=== PATIENT | female | born 1955 | race Caucasian/White ===

== ENCOUNTER → 2023-07-26 12:30 | Outpatient (BNV) | payer MEDICARE, SELFPAY | PROVIDERS: Visit Provider Psychiatry & Neurology Psychiatry | DX: F33.2 Major depressive disorder, recurrent severe without psychotic features (principal) | CPT/HCPCS: 90867; 90868 ==

== ENCOUNTER 2023-10-08 10:00 | Outpatient (RCR) | payer MEDICARE, SELFPAY ==
--- NOTE | 2023-07-10 16:49 | W.PM.TMSCONS ---
History of Present Illness General Data Date of Service: 07/10/23 Reason for consult: Depression/TMS consult Karissa farah made referral History of Present Illness Patient is a 67-year-old female with a long history of clinical depression worse since she required bypass surgery a few years ago. The patient had been seeing Dr. Pamela Walker at [facility] who has how been at [facility] and has been psychiatrically pharmacologically managed by her primary care and has been and ongoing psychotherapy for depression with Karissa Eugene for at least a year and a half. 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 The patient has use in the current episode which has less a number of years Prozac up to 60 mg sertraline up to 125 mg had Wellbutrin augmentation which was not effective and also the light box for augmentation. She has also been on amitriptyline previously. She has been under a lot of stress she may id need thyroid surgery for a goiter her thyroid functions reportedly her unremarkable she is frequently worried about her children particularly a daughter that she has been quite concerned regarding her level of drinking at times the patient has been quite despondent at times hopeless helpless never quite feeling good a poor able to enjoy things. Her respite has generally been at work where she can get her mind off her own concerns and troubles. Quite anhedonic denies history of psychiatric hospitalizations. She does feel distraught at the end of her rope cannot fathom further medication trials concerns regarding side effects and her ankle and cardiac condition Past Psychiatric History/Medication Trials: First treated for depression as a young adult when her daughters were teenagers. [facility] Medical History (Updated 07/12/23 @ 20:39 by Fabio Lipscomb MD) Major depressive disorder, recurrent severe without psychotic features Narrative: Status post bypass surgery History of titanium plate C3-C4 a fusion she states she has had MRIs without difficulties. No history of brain surgery aneurysm clips implanted electrodes pacemaker cochlear implant. 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 low-dose aspirin 81 mg daily zyrtec 10 mg daily solefenacin 10 mg daily for bladder control Allergies noted to Demerol Percocet codeine Mental Status Exam Mental Status Exam Narrative: Sad looking somewhat tearful Patient Appearance: Well Grooomed Patient Orientation: Person, Place, Time and Situation Level of Consciousness: Awake and Appropriate Mood Description: Depressed and Blunted Affect Description: Appropriate, Constricted and Depressed Patient Cognition Impaired: No Ability to Follow Directions: Good Speech Pattern: Clear Memory Description: Intact Hallucinations: None Delusions: Not Present Thought Process: Intact and Goal Oriented Thought Content: positive for Goal Oriented, positive for Preoccupation, negative for Suicidal Ideation or negative for Homicidal Ideation Depressive Symptoms: Increased Anxiety, Increased Irritability, Loss of Int. in Activity, Hopelessness, Isolating-Friends/Family, Unhappiness, Increased Fatigue, Loss of Energy and Difficulty Concentrating Judgement and Insight: Impaired regarding need for self-care tends to be stoic Assessment & Plan Assessment & Plan (1) Major depressive disorder, recurrent severe without psychotic features: Status: Acute Code(s): F33.2 - Major depressive disorder, recurrent severe without psychotic features Plan . The patient with a significant level of depression withHopelessness helplessness wanting to be isolated increased irritability and ongoing dysphoria that has failed medical trials psychotherapy light box and is quite concerned regarding potential side effects of antipsychotic augmentation or other side effects given medical issues . Patient would be a candidate for TMS given her level of depression poor functioning marked lack of quality of life will review insurance protocol no medical contraindications to treatment would trying clarify that she does have a titanium plate that can be used with MRI and magnetic tavera and that her thyroid condition is stable Their other augmentation strategies that were reviewed with patient a literature review risks benefits alternatives reviewed Total time managing care of this patient today ____ minutes.
--- NOTE | 2023-07-26 21:41 | P.PNPS_ITS ---
TMS Daily Progress Note Daily TMS Progress Note Date of Service: 07/26/23 Week #: 1 Treatment #(12-04): 1 PHQ-9 Pre-Treatment (12-01): 16 PHQ-9 Most Recent (12-01): 16 Reviewed: TMS Tech Note Reviewed Verification: I have reviewed the TMS Anesthesiologist Assistant Note and agree with the contents. The patient remains a candidate to continue TMS treatment per protocol. Assessment and Plan (1) Major depressive disorder, recurrent severe without psychotic features: Status: Acute Plan pt initial mapping completed without difficulty Time Spent With Patient Time: Total time managing care of this patient today ____ minutes.
--- NOTE | 2023-07-30 22:28 | HO.TMSDAILY2 ---
TMS Daily Progress Note Daily TMS Progress Note Date of Service: 07/27/23 Week #: 1 Treatment #(12-04): 2 PHQ-9 Pre-Treatment (12-01): 16 PHQ-9 Most Recent (12-01): 16 Reviewed: TMS Tech Note Reviewed Verification: I have reviewed the TMS Farm Equipment Assembler Note and agree with the contents. The patient remains a candidate to continue TMS treatment per protocol. Assessment and Plan Time Spent With Patient Time: Total time managing care of this patient today ____ minutes.
--- NOTE | 2023-07-30 22:30 | P.PNPS_ITS ---
TMS Daily Progress Note Daily TMS Progress Note Date of Service: 07/30/23 Week #: 1 Treatment #(12-04): 3 PHQ-9 Pre-Treatment (12-01): 16 PHQ-9 Most Recent (12-01): 16 Reviewed: TMS Tech Note Reviewed Verification: I have reviewed the TMS Electrical Engineering Designer Note and agree with the contents. The patient remains a candidate to continue TMS treatment per protocol. Assessment and Plan (1) Major depressive disorder, recurrent severe without psychotic features: Status: Acute Plan Tolerating treatment some apprehension with patient Time Spent With Patient Time: Total time managing care of this patient today ____ minutes.
--- NOTE | 2023-07-31 22:47 | HO.TMSDAILY2 ---
TMS Daily Progress Note Daily TMS Progress Note Date of Service: 07/31/23 Week #: 1 Treatment #(12-04): 4 PHQ-9 Pre-Treatment (12-01): 16 PHQ-9 Most Recent (12-01): 16 Reviewed: TMS Tech Note Reviewed Verification: I have reviewed the TMS Security Assurance Analyst Note and agree with the contents. The patient remains a candidate to continue TMS treatment per protocol. Assessment and Plan (1) Major depressive disorder, recurrent severe without psychotic features: Status: Acute Plan Patient tolerating treatment with some sedation after feeling comfortable about treatment no significant complaints side effects Time Spent With Patient Time: Total time managing care of this patient today ____ minutes.
--- NOTE | 2023-08-02 21:08 | P.PNPS_ITS ---
TMS Daily Progress Note Daily TMS Progress Note Date of Service: 08/02/23 Week #: 1 Treatment #(12-04): 5 PHQ-9 Pre-Treatment (12-01): 16 PHQ-9 Most Recent (12-01): 16 Reviewed: TMS Tech Note Reviewed Verification: I have reviewed the TMS Kiln Car Repairer Note and agree with the contents. The patient remains a candidate to continue TMS treatment per protocol. Assessment and Plan (1) Major depressive disorder, recurrent severe without psychotic features: Status: Acute Plan tolerating tx cont plan of care Time Spent With Patient Time: Total time managing care of this patient today ____ minutes.
--- NOTE | 2023-08-04 00:06 | P.PNPS_ITS ---
TMS Daily Progress Note Daily TMS Progress Note Date of Service: 08/03/23 Week #: 2 Treatment #(12-04): 6 PHQ-9 Pre-Treatment (12-01): 16 PHQ-9 Most Recent (12-01): 16 Reviewed: TMS Tech Note Reviewed Verification: I have reviewed the TMS Home Child Care Provider Note and agree with the contents. The patient remains a candidate to continue TMS treatment per protocol. Assessment and Plan (1) Major depressive disorder, recurrent severe without psychotic features: Status: Acute Plan Tolerating treatment continue plan of care Time Spent With Patient Time: Total time managing care of this patient today ____ minutes.
--- NOTE | 2023-08-15 22:17 | P.PNPS_ITS ---
TMS Daily Progress Note Daily TMS Progress Note Date of Service: 08/15/23 Week #: 3 Treatment #(12-04): 11 PHQ-9 Pre-Treatment (12-01): 16 PHQ-9 Most Recent (12-01): 5 Reviewed: TMS Tech Note Reviewed Verification: I have reviewed the TMS Medical Physics Professor Note and agree with the contents. The patient remains a candidate to continue TMS treatment per protocol. Assessment and Plan (1) Major depressive disorder, recurrent severe without psychotic features: Status: Acute Plan doing better cont plan of care Time Spent With Patient Time: Total time managing care of this patient today ____ minutes.
--- NOTE | 2023-08-16 22:03 | HO.TMSDAILY2 ---
TMS Daily Progress Note Daily TMS Progress Note Date of Service: 08/16/23 Week #: 3 Treatment #(12-04): 12 PHQ-9 Pre-Treatment (12-01): 16 PHQ-9 Most Recent (12-01): 5 Reviewed: TMS Tech Note Reviewed Verification: I have reviewed the TMS Commissary Helper Note and agree with the contents. The patient remains a candidate to continue TMS treatment per protocol. Assessment and Plan (1) Major depressive disorder, recurrent severe without psychotic features: Status: Acute Plan much improved Time Spent With Patient Time: Total time managing care of this patient today ____ minutes.
--- NOTE | 2023-08-17 23:55 | HO.TMSDAILY2 ---
TMS Daily Progress Note Daily TMS Progress Note Date of Service: 08/19/23 Week #: 3 Treatment #(12-04): 13 PHQ-9 Pre-Treatment (12-01): 16 PHQ-9 Most Recent (12-01): 5 Reviewed: TMS Tech Note Reviewed Verification: I have reviewed the TMS Deep Submergence Vehicle Crewmember Note and agree with the contents. The patient remains a candidate to continue TMS treatment per protocol. Assessment and Plan (1) Major depressive disorder, recurrent severe without psychotic features: Status: Acute Plan Patient continues to show no side effects and significant improvement Time Spent With Patient Time: Total time managing care of this patient today ____ minutes.
--- NOTE | 2023-08-20 22:04 | HO.TMSDAILY2 ---
TMS Daily Progress Note Daily TMS Progress Note Date of Service: 08/20/23 Week #: 3 Treatment #(12-04): 14 PHQ-9 Pre-Treatment (12-01): 16 PHQ-9 Most Recent (12-01): 5 Reviewed: TMS Tech Note Reviewed Verification: I have reviewed the TMS Signal Intelligence Analyst Note and agree with the contents. The patient remains a candidate to continue TMS treatment per protocol. Assessment and Plan Time Spent With Patient Time: Total time managing care of this patient today ____ minutes.
--- NOTE | 2023-09-03 21:21 | P.PNPS_ITS ---
TMS Daily Progress Note Daily TMS Progress Note Date of Service: 09/03/23 Week #: 3 Treatment #(12-04): 15 PHQ-9 Pre-Treatment (12-01): 16 PHQ-9 Most Recent (12-01): 5 Reviewed: TMS Tech Note Reviewed Verification: I have reviewed the TMS Sack Department Supervisor Note and agree with the contents. The patient remains a candidate to continue TMS treatment per protocol. Assessment and Plan Time Spent With Patient Time: Total time managing care of this patient today ____ minutes.
--- NOTE | 2023-09-03 21:29 | P.PNPS_ITS ---
TMS Daily Progress Note Daily TMS Progress Note Date of Service: 08/23/23 Week #: 4 Treatment #(12-04): 16 PHQ-9 Pre-Treatment (12-01): 16 PHQ-9 Most Recent (12-01): 5 Reviewed: TMS Tech Note Reviewed Verification: I have reviewed the TMS Manager Discovery Note and agree with the contents. The patient remains a candidate to continue TMS treatment per protocol. Assessment and Plan (1) Major depressive disorder, recurrent severe without psychotic features: Status: Acute Plan cont plan of care Time Spent With Patient Time: Total time managing care of this patient today ____ minutes.
--- NOTE | 2023-09-03 21:33 | P.PNPS_ITS ---
TMS Daily Progress Note Daily TMS Progress Note Date of Service: 08/24/23 Week #: 4 Treatment #(12-04): 17 PHQ-9 Pre-Treatment (12-01): 16 PHQ-9 Most Recent (12-01): 5 Reviewed: TMS Tech Note Reviewed Verification: I have reviewed the TMS Construction Carpenters Helper Note and agree with the contents. The patient remains a candidate to continue TMS treatment per protocol. Assessment and Plan (1) Major depressive disorder, recurrent severe without psychotic features: Status: Acute Plan marked improvement noted Time Spent With Patient Time: Total time managing care of this patient today ____ minutes.
--- NOTE | 2023-09-03 21:42 | HO.TMSDAILY2 ---
TMS Daily Progress Note Daily TMS Progress Note Date of Service: 08/28/23 Week #: 4 Treatment #(12-04): 19 PHQ-9 Pre-Treatment (12-01): 16 PHQ-9 Most Recent (12-01): 5 Reviewed: TMS Tech Note Reviewed Verification: I have reviewed the TMS Production Administrative Assistant Note and agree with the contents. The patient remains a candidate to continue TMS treatment per protocol. Assessment and Plan (1) Major depressive disorder, recurrent severe without psychotic features: Status: Acute Plan cont plan of care Time Spent With Patient Time: Total time managing care of this patient today ____ minutes.
--- NOTE | 2023-09-03 21:47 | P.PNPS_ITS ---
TMS Daily Progress Note Daily TMS Progress Note Date of Service: 08/27/23 Week #: 4 Treatment #(12-04): 18 PHQ-9 Pre-Treatment (12-01): 16 PHQ-9 Most Recent (12-01): 5 Reviewed: TMS Tech Note Reviewed Verification: I have reviewed the TMS Dry Starch Supervisor Note and agree with the contents. The patient remains a candidate to continue TMS treatment per protocol. Assessment and Plan (1) Major depressive disorder, recurrent severe without psychotic features: Status: Acute Plan cont plan of care Time Spent With Patient Time: Total time managing care of this patient today ____ minutes.
--- NOTE | 2023-09-03 21:49 | P.PNPS_ITS ---
TMS Daily Progress Note Daily TMS Progress Note Date of Service: 08/29/23 Week #: 4 Treatment #(12-04): 20 PHQ-9 Pre-Treatment (12-01): 16 PHQ-9 Most Recent (12-01): 5 Reviewed: TMS Tech Note Reviewed Verification: I have reviewed the TMS Auto Service Writer Note and agree with the contents. The patient remains a candidate to continue TMS treatment per protocol. Assessment and Plan (1) Major depressive disorder, recurrent severe without psychotic features: Status: Acute Plan cont plan of care discussed with pt tx her changes despite stressors going on her daughter going thru difficult divorce Time Spent With Patient Time: Total time managing care of this patient today ____ minutes.
--- NOTE | 2023-09-03 21:51 | HO.TMSDAILY2 ---
TMS Daily Progress Note Daily TMS Progress Note Date of Service: 08/31/23 Week #: 5 Treatment #(12-04): 21 PHQ-9 Pre-Treatment (12-01): 16 PHQ-9 Most Recent (12-01): 5 Reviewed: TMS Tech Note Reviewed Verification: I have reviewed the TMS Embosser Apprentice Note and agree with the contents. The patient remains a candidate to continue TMS treatment per protocol. Assessment and Plan Time Spent With Patient Time: Total time managing care of this patient today ____ minutes.
--- NOTE | 2023-09-03 21:52 | HO.TMSDAILY2 ---
TMS Daily Progress Note Daily TMS Progress Note Date of Service: 09/03/23 Week #: 5 Treatment #(12-04): 21 PHQ-9 Pre-Treatment (12-01): 16 PHQ-9 Most Recent (12-01): 5 Reviewed: TMS Tech Note Reviewed Verification: I have reviewed the TMS Director Of Professional Services Note and agree with the contents. The patient remains a candidate to continue TMS treatment per protocol. Assessment and Plan Time Spent With Patient Time: Total time managing care of this patient today ____ minutes.
--- NOTE | 2023-11-20 19:42 | P.PNPS_ITS ---
TMS Daily Progress Note Daily TMS Progress Note Date of Service: 08/31/23 Week #: 5 Treatment #(-30): 21 PHQ-9 Pre-Treatment (-): 13 PHQ-9 Most Recent (12-01): 5 CARL-7 Pre-Treatment (0-): 10 CARL-7 Most Recent (0-): 4 Reviewed: TMS Tech Note Reviewed Verification: I have reviewed the TMS Radioisotope Production Operator Note and agree with the contents. The patient remains a candidate to continue TMS treatment per protocol.
--- NOTE | 2023-11-20 19:55 | P.PNPS_ITS ---
TMS Daily Progress Note Daily TMS Progress Note Date of Service: 09/03/23 Week #: 5 Treatment #(-): 21 PHQ-9 Pre-Treatment (-): 13 PHQ-9 Most Recent (12-01): 3 CARL-7 Pre-Treatment (0-): 10 CARL-7 Most Recent (0-21): 1 Reviewed: TMS Tech Note Reviewed Verification: I have reviewed the TMS Brush Holder Assembler Note and agree with the contents. The patient remains a candidate to continue TMS treatment per protocol.
--- NOTE | 2023-12-09 22:19 | P.PNPS_ITS ---
TMS Daily Progress Note Daily TMS Progress Note Date of Service: 09/04/23 Week #: 5 Treatment #(-30): 23 PHQ-9 Pre-Treatment (-): 13 PHQ-9 Most Recent (12-01): 3 CARL-7 Pre-Treatment (0-21): 10 CARL-7 Most Recent (0-21): 1 Reviewed: TMS Tech Note Reviewed Verification: I have reviewed the TMS Software Licensing Specialist Note and agree with the contents. The patient remains a candidate to continue TMS treatment per protocol. Assessment and Plan (1) Major depressive disorder, recurrent severe without psychotic features: Status: Acute Plan doing quite well
--- NOTE | 2023-12-09 22:25 | HO.TMSDAILY2 ---
TMS Daily Progress Note Daily TMS Progress Note Date of Service: 09/06/23 Week #: 5 Treatment #(-30): 24 PHQ-9 Pre-Treatment (-): 13 PHQ-9 Most Recent (12-01): 3 CARL-7 Pre-Treatment (0-21): 10 CARL-7 Most Recent (0-21): 1 Reviewed: TMS Tech Note Reviewed Verification: I have reviewed the TMS Medical Staff Director Note and agree with the contents. The patient remains a candidate to continue TMS treatment per protocol.
--- NOTE | 2023-12-09 22:27 | HO.TMSDAILY2 ---
TMS Daily Progress Note Daily TMS Progress Note Date of Service: 09/07/23 Week #: 5 Treatment #(-30): 25 PHQ-9 Pre-Treatment (1-): 13 PHQ-9 Most Recent (-): 3 CARL-7 Pre-Treatment (0-21): 10 CARL-7 Most Recent (0-21): 1 Reviewed: TMS Tech Note Reviewed Verification: I have reviewed the TMS Medicare Nurse Note and agree with the contents. The patient remains a candidate to continue TMS treatment per protocol.
--- NOTE | 2023-12-09 22:29 | P.PNPS_ITS ---
TMS Daily Progress Note Daily TMS Progress Note Date of Service: 12/09/23 Week #: 6 Treatment #(-): 26 PHQ-9 Pre-Treatment (-): 13 PHQ-9 Most Recent (12-01): 3 CRAL-7 Pre-Treatment (0-21): 10 CARL-7 Most Recent (0-21): 1 Reviewed: TMS Tech Note Reviewed Verification: I have reviewed the TMS Vehicle Painter Note and agree with the contents. The patient remains a candidate to continue TMS treatment per protocol. Assessment and Plan (1) Major depressive disorder, recurrent severe without psychotic features: Status: Acute Plan doing quite well under stress re her daughters situation
--- NOTE | 2023-12-09 22:32 | P.PNPS_ITS ---
TMS Daily Progress Note Daily TMS Progress Note Date of Service: 09/11/23 Week #: 6 Treatment #(-30): 27 PHQ-9 Pre-Treatment (1-): 13 PHQ-9 Most Recent (12-01): 2 CARL-7 Pre-Treatment (0-21): 10 CARL-7 Most Recent (0-21): 1 Reviewed: TMS Tech Note Reviewed Verification: I have reviewed the TMS Die Casting Machine Operator Note and agree with the contents. The patient remains a candidate to continue TMS treatment per protocol.
--- NOTE | 2023-12-09 22:34 | P.PNPS_ITS ---
TMS Daily Progress Note Daily TMS Progress Note Date of Service: 09/13/23 Week #: 6 Treatment #(-30): 28 PHQ-9 Pre-Treatment (-): 13 PHQ-9 Most Recent (12-01): 2 CARL-7 Pre-Treatment (0-21): 10 CARL-7 Most Recent (0-21): 1 Reviewed: TMS Tech Note Reviewed Verification: I have reviewed the TMS Carpet Yarn Winder Operator Note and agree with the contents. The patient remains a candidate to continue TMS treatment per protocol. Assessment and Plan (1) Major depressive disorder, recurrent severe without psychotic features: Status: Acute Plan marked improvenent
--- NOTE | 2023-12-09 22:36 | P.PNPS_ITS ---
TMS Daily Progress Note Daily TMS Progress Note Date of Service: 09/17/23 Week #: 6 Treatment #(-30): 29 PHQ-9 Pre-Treatment (-): 13 PHQ-9 Most Recent (12-01): 2 CARL-7 Pre-Treatment (0-21): 10 CARL-7 Most Recent (0-21): 1 Reviewed: TMS Tech Note Reviewed Verification: I have reviewed the TMS Battery Inspector Note and agree with the contents. The patient remains a candidate to continue TMS treatment per protocol. Assessment and Plan (1) Major depressive disorder, recurrent severe without psychotic features: Status: Acute Plan cont tx plan
--- NOTE | 2023-12-09 22:42 | HO.TMSDAILY2 ---
TMS Daily Progress Note Daily TMS Progress Note Date of Service: 09/18/23 Week #: 6 Treatment #(-30): 30 PHQ-9 Pre-Treatment (-): 13 PHQ-9 Most Recent (12-01): 2 CARL-7 Pre-Treatment (0-21): 10 CARL-7 Most Recent (0-21): 1 Reviewed: TMS Tech Note Reviewed Verification: I have reviewed the TMS Balance Wheel Motion Inspector Note and agree with the contents. The patient remains a candidate to continue TMS treatment per protocol.
--- NOTE | 2023-12-09 22:45 | P.PNPS_ITS ---
TMS Daily Progress Note Daily TMS Progress Note Date of Service: 09/20/23 Week #: 7 Treatment #(-30): 31 PHQ-9 Pre-Treatment (-): 13 PHQ-9 Most Recent (12-01): 1 CARL-7 Pre-Treatment (0-): 10 CARL-7 Most Recent (0-21): 1 Reviewed: TMS Tech Note Reviewed Verification: I have reviewed the TMS Supervisor Concrete Pipe Plant Note and agree with the contents. The patient remains a candidate to continue TMS treatment per protocol.
--- NOTE | 2023-12-09 22:48 | HO.TMSDAILY2 ---
TMS Daily Progress Note Daily TMS Progress Note Date of Service: 09/24/23 Week #: 7 Treatment #(-30): 32 PHQ-9 Pre-Treatment (-): 13 PHQ-9 Most Recent (12-01): 1 CARL-7 Pre-Treatment (0-): 10 CARL-7 Most Recent (0-): 1 Reviewed: TMS Tech Note Reviewed Verification: I have reviewed the TMS Refrigeration Plant Operator Note and agree with the contents. The patient remains a candidate to continue TMS treatment per protocol.
--- NOTE | 2023-12-09 22:50 | HO.TMSDAILY2 ---
TMS Daily Progress Note Daily TMS Progress Note Date of Service: 10/01/23 Week #: 7 Treatment #(-): 33 PHQ-9 Pre-Treatment (-): 13 PHQ-9 Most Recent (12-01): 1 CARL-7 Pre-Treatment (0-): 10 CARL-7 Most Recent (0-): 1 Reviewed: TMS Tech Note Reviewed Verification: I have reviewed the TMS Education Trainer Note and agree with the contents. The patient remains a candidate to continue TMS treatment per protocol. Assessment and Plan (1) Major depressive disorder, recurrent severe without psychotic features: Status: Acute Plan marked improvement
--- NOTE | 2023-12-09 22:55 | P.PNPS_ITS ---
TMS Daily Progress Note Daily TMS Progress Note Date of Service: 09/24/23 Week #: 7 Treatment #(-30): 34 PHQ-9 Pre-Treatment (-): 13 PHQ-9 Most Recent (12-01): 0 CARL-7 Pre-Treatment (0-21): 10 CARL-7 Most Recent (0-21): 1 Reviewed: TMS Tech Note Reviewed Verification: I have reviewed the TMS Parking Lot Attendant Note and agree with the contents. The patient remains a candidate to continue TMS treatment per protocol.
--- NOTE | 2023-12-09 22:58 | HO.TMSDAILY2 ---
TMS Daily Progress Note Daily TMS Progress Note Date of Service: 10/04/23 Week #: 8 Treatment #(12-04): 35 PHQ-9 Pre-Treatment (-): 13 PHQ-9 Most Recent (12-01): 0 CARL-7 Pre-Treatment (0-21): 10 CARL-7 Most Recent (0-21): 1 Reviewed: TMS Tech Note Reviewed Verification: I have reviewed the TMS Design Cell Engineer Note and agree with the contents. The patient remains a candidate to continue TMS treatment per protocol. Assessment and Plan (1) Major depressive disorder, recurrent severe without psychotic features: Status: Acute Plan no c/o side effects marked improvement
--- NOTE | 2023-12-09 23:05 | HO.TMSDAILY2 ---
TMS Daily Progress Note Daily TMS Progress Note Date of Service: 12/09/23 Week #: 8 Treatment #(-): 36 PHQ-9 Pre-Treatment (-): 13 PHQ-9 Most Recent (12-01): 0 CARL-7 Pre-Treatment (0-21): 10 CARL-7 Most Recent (0-21): 1 Reviewed: TMS Tech Note Reviewed Verification: I have reviewed the TMS Small Electric Engine Technician Note and agree with the contents. The patient remains a candidate to continue TMS treatment per protocol. Assessment and Plan (1) Major depressive disorder, recurrent severe without psychotic features: Status: Acute Plan last tx marked improvement
== END 2023-10-09 11:45 | disposition home or self-care (01) ==
LOC: HO.PTMS 10:00
PROVIDERS: Visit Provider Psychiatry & Neurology Psychiatry
DX: F33.2 Major depressive disorder, recurrent severe without psychotic features (principal)
CPT/HCPCS: 90867; 90868

== ENCOUNTER → 2023-10-08 10:00 | Outpatient (BNV) | payer MEDICARE, SELFPAY | PROVIDERS: Visit Provider Psychiatry & Neurology Psychiatry | DX: F33.2 Major depressive disorder, recurrent severe without psychotic features (principal) | CPT/HCPCS: 90868 ==

== ENCOUNTER → 2024-03-27 14:57 | Outpatient (BNV) | payer MEDICARE, SELFPAY | PROVIDERS: Visit Provider Clinical Nurse Specialist Psychiatric/Mental Health | DX: F33.2 Major depressive disorder, recurrent severe without psychotic features (principal) | CPT/HCPCS: 90869 ==

== ENCOUNTER → 2024-04-08 09:30 | Outpatient (BNV) | payer MEDICARE, SELFPAY | PROVIDERS: Visit Provider Psychiatry & Neurology Psychiatry | DX: F33.2 Major depressive disorder, recurrent severe without psychotic features (principal) | CPT/HCPCS: 90867; 90868 ==

== ENCOUNTER 2024-06-13 09:30 | Outpatient (RCR) | payer MEDICARE, SELFPAY ==
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
--- NOTE | 2024-04-08 17:43 | HO.TMSDAILY2 ---
TMS Daily Progress Note Daily TMS Progress Note Date of Service: 04/13/24 Week #: 1 Treatment #(12-04): 1 PHQ-9 Pre-Treatment (12-01): 14 PHQ-9 Most Recent (12-01): 4 Reviewed: TMS Tech Note Reviewed Verification: I have reviewed the TMS Leather Flesher Note and agree with the contents. The patient remains a candidate to continue TMS treatment per protocol. Assessment and Plan (1) Major depressive disorder, recurrent severe without psychotic features: Status: Acute Plan last tx marked improvement completed mapping for re-treatment after relapse
--- NOTE | 2024-04-09 23:25 | P.PNPS_ITS ---
TMS Daily Progress Note Daily TMS Progress Note Date of Service: 04/10/24 Week #: 1 Treatment #(12-04): 2 PHQ-9 Pre-Treatment (12-01): 14 PHQ-9 Most Recent (12-01): 14 Reviewed: TMS Tech Note Reviewed Verification: I have reviewed the TMS Agricultural Production Engineer Note and agree with the contents. The patient remains a candidate to continue TMS treatment per protocol. Assessment and Plan (1) Major depressive disorder, recurrent severe without psychotic features: Status: Acute (2) CARL (generalized anxiety disorder): Status: Acute Plan Patient tolerating treatment grateful to be back in treatment which had been very helpful felt she was significantly relapsing
--- NOTE | 2024-04-13 23:03 | HO.TMSDAILY2 ---
TMS Daily Progress Note Daily TMS Progress Note Date of Service: 04/11/24 Week #: 1 Treatment #(12-04): 3 PHQ-9 Pre-Treatment (12-01): 14 PHQ-9 Most Recent (12-01): 14 Reviewed: TMS Tech Note Reviewed Verification: I have reviewed the TMS Signal Intelligence Analyst Note and agree with the contents. The patient remains a candidate to continue TMS treatment per protocol. Assessment and Plan (1) Major depressive disorder, recurrent severe without psychotic features: Status: Acute (2) CARL (generalized anxiety disorder): Status: Acute Plan Continue current treatment plan retreatment
--- NOTE | 2024-04-15 22:19 | P.PNPS_ITS ---
TMS Daily Progress Note Daily TMS Progress Note Date of Service: 04/14/24 Week #: 1 Treatment #(12-04): 1 PHQ-9 Pre-Treatment (12-01): 14 PHQ-9 Most Recent (12-01): 14 Reviewed: TMS Tech Note Reviewed Verification: I have reviewed the TMS Health And Wellness Coach Note and agree with the contents. The patient remains a candidate to continue TMS treatment per protocol. Assessment and Plan (1) Major depressive disorder, recurrent severe without psychotic features: Status: Acute (2) CARL (generalized anxiety disorder): Status: Acute Plan Continue current treatment plan retreatment
--- NOTE | 2024-04-17 22:48 | HO.TMSDAILY2 ---
TMS Daily Progress Note Daily TMS Progress Note Date of Service: 04/15/24 Week #: 1 Treatment #(12-04): 5 PHQ-9 Pre-Treatment (12-01): 8 PHQ-9 Most Recent (12-01): 8 Reviewed: TMS Tech Note Reviewed Verification: I have reviewed the TMS Office Communication Professor Note and agree with the contents. The patient remains a candidate to continue TMS treatment per protocol. Assessment and Plan (1) Major depressive disorder, recurrent severe without psychotic features: Status: Acute Plan Continue plan of care increase MT as tolerated no complaints of side effects. Patient does tend to downplay her symptoms
--- NOTE | 2024-04-21 10:01 | HO.TMSDAILY2 ---
TMS Daily Progress Note Daily TMS Progress Note Date of Service: 04/17/24 Week #: 2 Treatment #(12-04): 6 PHQ-9 Pre-Treatment (12-01): 8 PHQ-9 Most Recent (12-01): 8 Reviewed: TMS Tech Note Reviewed Verification: I have reviewed the TMS Collateral Specialist Note and agree with the contents. The patient remains a candidate to continue TMS treatment per protocol. Assessment and Plan (1) Major depressive disorder, recurrent severe without psychotic features: Status: Acute (2) CARL (generalized anxiety disorder): Status: Acute
--- NOTE | 2024-04-21 10:02 | HO.TMSDAILY2 ---
TMS Daily Progress Note Daily TMS Progress Note Date of Service: 04/18/24 Week #: 2 Treatment #(12-04): 7 PHQ-9 Pre-Treatment (12-01): 8 PHQ-9 Most Recent (12-01): 8 Reviewed: TMS Tech Note Reviewed Verification: I have reviewed the TMS Broke Beater Machine Operator Note and agree with the contents. The patient remains a candidate to continue TMS treatment per protocol. Assessment and Plan (1) Major depressive disorder, recurrent severe without psychotic features: Status: Acute (2) CARL (generalized anxiety disorder): Status: Acute Plan Patient without complaint of side effect continues to be hopeful regarding treatment was quite helpful previously
--- NOTE | 2024-04-21 10:05 | P.PNPS_ITS ---
TMS Daily Progress Note Daily TMS Progress Note Date of Service: 04/21/24 Week #: 2 Treatment #(12-04): 8 PHQ-9 Pre-Treatment (12-01): 8 PHQ-9 Most Recent (12-01): 8 Reviewed: TMS Tech Note Reviewed Verification: I have reviewed the TMS Drapery Rod Assembler Note and agree with the contents. The patient remains a candidate to continue TMS treatment per protocol. Assessment and Plan (1) Major depressive disorder, recurrent severe without psychotic features: Status: Acute (2) CARL (generalized anxiety disorder): Status: Acute Plan Patient without complaint of side effect continues to be hopeful regarding treatment was quite helpful previously Remains quite engaged
--- NOTE | 2024-04-21 22:09 | HO.TMSDAILY2 ---
TMS Daily Progress Note Daily TMS Progress Note Date of Service: 04/21/24 Week #: 2 Treatment #(12-04): 8 PHQ-9 Pre-Treatment (12-01): 8 PHQ-9 Most Recent (12-01): 8 Reviewed: TMS Tech Note Reviewed Verification: I have reviewed the TMS Sociology Adjunct Instructor Note and agree with the contents. The patient remains a candidate to continue TMS treatment per protocol.
--- NOTE | 2024-06-20 13:09 | HO.TMSDAILY2 ---
TMS Daily Progress Note Daily TMS Progress Note Date of Service: 04/22/24 Week #: 2 Treatment #(12-04): 9 PHQ-9 Pre-Treatment (12-01): 8 PHQ-9 Most Recent (12-01): 8 Reviewed: TMS Tech Note Reviewed Verification: I have reviewed the TMS Dot Net Developer Note and agree with the contents. The patient remains a candidate to continue TMS treatment per protocol. Assessment and Plan (1) Major depressive disorder, recurrent severe without psychotic features: Status: Acute (2) CARL (generalized anxiety disorder): Status: Acute Plan continue shadi of care
--- NOTE | 2024-06-20 13:12 | P.PNPS_ITS ---
TMS Daily Progress Note Daily TMS Progress Note Date of Service: 04/24/24 Week #: 2 Treatment #(12-04): 10 PHQ-9 Pre-Treatment (12-01): 8 PHQ-9 Most Recent (12-01): 8 Reviewed: TMS Tech Note Reviewed Verification: I have reviewed the TMS Manager Video Note and agree with the contents. The patient remains a candidate to continue TMS treatment per protocol. Assessment and Plan (1) Major depressive disorder, recurrent severe without psychotic features: Status: Acute (2) CARL (generalized anxiety disorder): Status: Acute Plan continue shadi of care 120 % mt
--- NOTE | 2024-06-20 13:19 | P.PNPS_ITS ---
TMS Daily Progress Note Daily TMS Progress Note Date of Service: 04/25/24 Week #: 3 Treatment #(12-04): 11 PHQ-9 Pre-Treatment (12-01): 8 PHQ-9 Most Recent (12-01): 8 Reviewed: TMS Tech Note Reviewed Verification: I have reviewed the TMS Building Architectural Designer Note and agree with the contents. The patient remains a candidate to continue TMS treatment per protocol. Assessment and Plan (1) Major depressive disorder, recurrent severe without psychotic features: Status: Acute (2) CARL (generalized anxiety disorder): Status: Acute Plan continue shadi of care 120 % mt
--- NOTE | 2024-06-20 13:20 | HO.TMSDAILY2 ---
TMS Daily Progress Note Daily TMS Progress Note Date of Service: 04/28/24 Week #: 3 Treatment #(12-04): 12 PHQ-9 Pre-Treatment (12-01): 8 PHQ-9 Most Recent (12-01): 7 Reviewed: TMS Tech Note Reviewed Verification: I have reviewed the TMS Animal Control Specialist Note and agree with the contents. The patient remains a candidate to continue TMS treatment per protocol. Assessment and Plan (1) Major depressive disorder, recurrent severe without psychotic features: Status: Acute (2) CARL (generalized anxiety disorder): Status: Acute Plan continue shadi of care 120 % mt although PHQ-9 not grossly elevated initially patient tends to downplay PHQ-9 and level of distress was quite significant Has generally felt quite helped by TMS
--- NOTE | 2024-06-20 13:22 | HO.TMSDAILY2 ---
TMS Daily Progress Note Daily TMS Progress Note Date of Service: 04/29/24 Week #: 3 Treatment #(12-04): 13 PHQ-9 Pre-Treatment (12-01): 8 PHQ-9 Most Recent (12-01): 7 Reviewed: TMS Tech Note Reviewed Verification: I have reviewed the TMS Middle School Tutor Note and agree with the contents. The patient remains a candidate to continue TMS treatment per protocol. Assessment and Plan (1) Major depressive disorder, recurrent severe without psychotic features: Status: Acute (2) CARL (generalized anxiety disorder): Status: Acute Plan continue shadi of care 120 % mt no c/o side effects
--- NOTE | 2024-06-20 14:59 | HO.TMSDAILY2 ---
TMS Daily Progress Note Daily TMS Progress Note Date of Service: 05/01/24 Week #: 3 Treatment #(12-04): 14 PHQ-9 Pre-Treatment (12-01): 8 PHQ-9 Most Recent (12-01): 5 Reviewed: TMS Tech Note Reviewed Verification: I have reviewed the TMS Livestock Broker Note and agree with the contents. The patient remains a candidate to continue TMS treatment per protocol. Assessment and Plan (1) Major depressive disorder, recurrent severe without psychotic features: Status: Acute (2) CARL (generalized anxiety disorder): Status: Acute Plan continue shadi of care 120 % mt no c/o side effects
--- NOTE | 2024-06-20 15:03 | P.PNPS_ITS ---
TMS Daily Progress Note Daily TMS Progress Note Date of Service: 06/20/24 Week #: 3 Treatment #(12-04): 15 PHQ-9 Pre-Treatment (12-01): 8 PHQ-9 Most Recent (12-01): 5 Reviewed: TMS Tech Note Reviewed Verification: I have reviewed the TMS Assistant To The President Note and agree with the contents. The patient remains a candidate to continue TMS treatment per protocol. Assessment and Plan (1) Major depressive disorder, recurrent severe without psychotic features: Status: Acute (2) CARL (generalized anxiety disorder): Status: Acute Plan continue shadi of care 120 % mt no c/o side effects some depressive sx continue
--- NOTE | 2024-06-20 15:05 | P.PNPS_ITS ---
TMS Daily Progress Note Daily TMS Progress Note Date of Service: 05/05/24 Week #: 4 Treatment #(12-04): 16 PHQ-9 Pre-Treatment (12-01): 8 PHQ-9 Most Recent (12-01): 4 Reviewed: TMS Tech Note Reviewed Verification: I have reviewed the TMS Maintenance And Repair Worker Note and agree with the contents. The patient remains a candidate to continue TMS treatment per protocol. Assessment and Plan (1) Major depressive disorder, recurrent severe without psychotic features: Status: Acute Plan Continue plan of care treatment going well
--- NOTE | 2024-06-20 15:06 | P.PNPS_ITS ---
TMS Daily Progress Note Daily TMS Progress Note Date of Service: 05/06/24 Week #: 4 Treatment #(12-04): 17 PHQ-9 Pre-Treatment (12-01): 8 PHQ-9 Most Recent (12-01): 4 Reviewed: TMS Tech Note Reviewed Verification: I have reviewed the TMS Fishing Tool Supervisor Note and agree with the contents. The patient remains a candidate to continue TMS treatment per protocol. Assessment and Plan (1) Major depressive disorder, recurrent severe without psychotic features: Status: Acute Plan Continue plan of care
--- NOTE | 2024-06-20 15:08 | HO.TMSDAILY2 ---
TMS Daily Progress Note Daily TMS Progress Note Date of Service: 05/09/24 Week #: 4 Treatment #(12-04): 18 PHQ-9 Pre-Treatment (12-01): 8 PHQ-9 Most Recent (12-01): 4 Reviewed: TMS Tech Note Reviewed Verification: I have reviewed the TMS As400 Administrator Note and agree with the contents. The patient remains a candidate to continue TMS treatment per protocol. Assessment and Plan (1) Major depressive disorder, recurrent severe without psychotic features: Status: Acute Plan Continue plan of care
--- NOTE | 2024-06-20 15:09 | HO.TMSDAILY2 ---
TMS Daily Progress Note Daily TMS Progress Note Date of Service: 05/12/24 Week #: 4 Treatment #(12-04): 19 PHQ-9 Pre-Treatment (12-01): 8 PHQ-9 Most Recent (12-01): 4 Reviewed: TMS Tech Note Reviewed Verification: I have reviewed the TMS Charge Master Analyst Note and agree with the contents. The patient remains a candidate to continue TMS treatment per protocol. Assessment and Plan (1) Major depressive disorder, recurrent severe without psychotic features: Status: Acute Plan Continue plan of care dealing with some ongoing marital stress at home
--- NOTE | 2024-06-20 15:11 | HO.TMSDAILY2 ---
TMS Daily Progress Note Daily TMS Progress Note Date of Service: 05/13/24 Week #: 4 Treatment #(12-04): 20 PHQ-9 Pre-Treatment (12-01): 8 PHQ-9 Most Recent (12-01): 4 Reviewed: TMS Tech Note Reviewed Verification: I have reviewed the TMS Band Tacker Note and agree with the contents. The patient remains a candidate to continue TMS treatment per protocol. Assessment and Plan (1) Major depressive disorder, recurrent severe without psychotic features: Status: Acute Plan Continue plan of care treatment tolerated
--- NOTE | 2024-06-20 15:12 | P.PNPS_ITS ---
TMS Daily Progress Note Daily TMS Progress Note Date of Service: 05/14/24 Week #: 5 Treatment #(12-04): 21 PHQ-9 Pre-Treatment (12-01): 8 PHQ-9 Most Recent (12-01): 4 Reviewed: TMS Tech Note Reviewed Verification: I have reviewed the TMS Pediatric Oncology Nurse Note and agree with the contents. The patient remains a candidate to continue TMS treatment per protocol. Assessment and Plan (1) Major depressive disorder, recurrent severe without psychotic features: Status: Acute Plan Patient was seen also 05/13/2024 do not see need to re map reviewed current treatment improvement gain function no significant side effects continue plan of care 05/14/24
--- NOTE | 2024-06-20 15:14 | HO.TMSDAILY2 ---
TMS Daily Progress Note Daily TMS Progress Note Date of Service: 05/16/24 Week #: 5 Treatment #(12-04): 22 PHQ-9 Pre-Treatment (12-01): 8 PHQ-9 Most Recent (12-01): 4 Reviewed: TMS Tech Note Reviewed Verification: I have reviewed the TMS Journeyman Electrician Pv Installer Note and agree with the contents. The patient remains a candidate to continue TMS treatment per protocol. Assessment and Plan (1) Major depressive disorder, recurrent severe without psychotic features: Status: Acute Plan Patient with variable mood generally feels improved tolerating treatment
--- NOTE | 2024-06-20 15:16 | P.PNPS_ITS ---
TMS Daily Progress Note Daily TMS Progress Note Date of Service: 05/19/24 Week #: 5 Treatment #(12-04): 23 PHQ-9 Pre-Treatment (12-01): 8 PHQ-9 Most Recent (12-01): 3 Reviewed: TMS Tech Note Reviewed Verification: I have reviewed the TMS Candle Molder Machine Note and agree with the contents. The patient remains a candidate to continue TMS treatment per protocol. Assessment and Plan (1) Major depressive disorder, recurrent severe without psychotic features: Status: Acute Plan Continue plan of care treatment tolerated without difficulty minimal fatigue at times post treatment
--- NOTE | 2024-06-20 15:18 | P.PNPS_ITS ---
TMS Daily Progress Note Daily TMS Progress Note Date of Service: 05/20/24 Week #: 5 Treatment #(12-04): 24 PHQ-9 Pre-Treatment (12-01): 8 PHQ-9 Most Recent (12-01): 3 Reviewed: TMS Tech Note Reviewed Verification: I have reviewed the TMS Lumber Tallier Note and agree with the contents. The patient remains a candidate to continue TMS treatment per protocol. Assessment and Plan (1) Major depressive disorder, recurrent severe without psychotic features: Status: Acute Plan Continue plan of care patient tolerating treatment improvement noted
--- NOTE | 2024-06-20 15:19 | P.PNPS_ITS ---
TMS Daily Progress Note Daily TMS Progress Note Date of Service: 05/22/24 Week #: 5 Treatment #(12-04): 25 PHQ-9 Pre-Treatment (12-01): 8 PHQ-9 Most Recent (12-01): 3 Reviewed: TMS Tech Note Reviewed Verification: I have reviewed the TMS Metal Can Inspector Note and agree with the contents. The patient remains a candidate to continue TMS treatment per protocol. Assessment and Plan (1) Major depressive disorder, recurrent severe without psychotic features: Status: Acute Plan Continue plan of care patient tolerating treatment improvement noted
--- NOTE | 2024-06-20 15:20 | P.PNPS_ITS ---
TMS Daily Progress Note Daily TMS Progress Note Date of Service: 05/26/24 Week #: 6 Treatment #(12-04): 26 PHQ-9 Pre-Treatment (12-01): 8 PHQ-9 Most Recent (12-01): 3 Reviewed: TMS Tech Note Reviewed Verification: I have reviewed the TMS Exterior Designer Note and agree with the contents. The patient remains a candidate to continue TMS treatment per protocol. Assessment and Plan (1) Major depressive disorder, recurrent severe without psychotic features: Status: Acute Plan Continue plan of care patient continues to feel this is helpful no significant side effects noted
--- NOTE | 2024-06-20 15:22 | P.PNPS_ITS ---
TMS Daily Progress Note Daily TMS Progress Note Date of Service: 05/27/24 Week #: 6 Treatment #(12-04): 27 PHQ-9 Pre-Treatment (12-01): 8 PHQ-9 Most Recent (12-01): 3 Reviewed: TMS Tech Note Reviewed Verification: I have reviewed the TMS Blankbook Forwarder Note and agree with the contents. The patient remains a candidate to continue TMS treatment per protocol. Assessment and Plan (1) Major depressive disorder, recurrent severe without psychotic features: Status: Acute Plan Continue plan of care patient continues to feel this is helpful no significant side effects noted
--- NOTE | 2024-06-21 00:18 | HO.TMSDAILY2 ---
TMS Daily Progress Note Daily TMS Progress Note Date of Service: 06/21/24 Week #: 6 Treatment #(12-04): 28 PHQ-9 Pre-Treatment (12-01): 8 PHQ-9 Most Recent (12-01): 3 Reviewed: TMS Tech Note Reviewed Verification: I have reviewed the TMS Cut Out Press Operator Note and agree with the contents. The patient remains a candidate to continue TMS treatment per protocol. Assessment and Plan (1) Major depressive disorder, recurrent severe without psychotic features: Status: Acute Plan cont plan of care
--- NOTE | 2024-06-21 00:24 | P.PNPS_ITS ---
TMS Daily Progress Note Daily TMS Progress Note Date of Service: 06/21/24 Week #: 6 Treatment #(12-04): 29 PHQ-9 Pre-Treatment (12-01): 8 PHQ-9 Most Recent (12-01): 3 Reviewed: TMS Tech Note Reviewed Verification: I have reviewed the TMS Tread Builder Note and agree with the contents. The patient remains a candidate to continue TMS treatment per protocol. Assessment and Plan (1) Major depressive disorder, recurrent severe without psychotic features: Status: Acute Plan cont plan of care
--- NOTE | 2024-06-21 00:26 | HO.TMSDAILY2 ---
TMS Daily Progress Note Daily TMS Progress Note Date of Service: 06/02/24 Week #: 6 Treatment #(12-04): 30 PHQ-9 Pre-Treatment (12-01): 8 PHQ-9 Most Recent (12-01): 3 Reviewed: TMS Tech Note Reviewed Verification: I have reviewed the TMS Training Technician Note and agree with the contents. The patient remains a candidate to continue TMS treatment per protocol. Assessment and Plan (1) Major depressive disorder, recurrent severe without psychotic features: Status: Acute Plan continue plan of care
--- NOTE | 2024-06-21 00:29 | HO.TMSDAILY2 ---
TMS Daily Progress Note Daily TMS Progress Note Date of Service: 06/21/24 Week #: 7 Treatment #(12-04): 31 PHQ-9 Pre-Treatment (12-01): 8 PHQ-9 Most Recent (12-01): 3 Reviewed: TMS Tech Note Reviewed Verification: I have reviewed the TMS Cartography Teacher Note and agree with the contents. The patient remains a candidate to continue TMS treatment per protocol. Assessment and Plan (1) Major depressive disorder, recurrent severe without psychotic features: Status: Acute Plan continue plan of care much improved
--- NOTE | 2024-06-21 00:32 | P.PNPS_ITS ---
TMS Daily Progress Note Daily TMS Progress Note Date of Service: 06/05/24 Week #: 7 Treatment #(12-04): 32 PHQ-9 Pre-Treatment (12-01): 8 PHQ-9 Most Recent (12-01): 3 Reviewed: TMS Tech Note Reviewed Verification: I have reviewed the TMS Contracts Intern Note and agree with the contents. The patient remains a candidate to continue TMS treatment per protocol. Assessment and Plan (1) Major depressive disorder, recurrent severe without psychotic features: Status: Acute Plan continue plan of care much improved
--- NOTE | 2024-06-21 00:34 | P.PNPS_ITS ---
TMS Daily Progress Note Daily TMS Progress Note Date of Service: 06/06/24 Week #: 7 Treatment #(12-04): 33 PHQ-9 Pre-Treatment (12-01): 8 PHQ-9 Most Recent (12-01): 3 Reviewed: TMS Tech Note Reviewed Verification: I have reviewed the TMS Staffing And Scheduling Coordinator Note and agree with the contents. The patient remains a candidate to continue TMS treatment per protocol. Assessment and Plan (1) Major depressive disorder, recurrent severe without psychotic features: Status: Acute Plan continue plan of care
--- NOTE | 2024-06-21 00:39 | P.PNPS_ITS ---
TMS Daily Progress Note Daily TMS Progress Note Date of Service: 06/09/24 Week #: 8 Treatment #(12-04): 34 PHQ-9 Pre-Treatment (12-01): 8 PHQ-9 Most Recent (12-01): 3 Reviewed: TMS Tech Note Reviewed Verification: I have reviewed the TMS Transfer Pumper Note and agree with the contents. The patient remains a candidate to continue TMS treatment per protocol. Assessment and Plan (1) Major depressive disorder, recurrent severe without psychotic features: Status: Acute Plan continue plan of care
--- NOTE | 2024-06-21 00:41 | P.PNPS_ITS ---
TMS Daily Progress Note Daily TMS Progress Note Date of Service: 06/10/24 Week #: 8 Treatment #(12-04): 35 PHQ-9 Pre-Treatment (12-01): 8 PHQ-9 Most Recent (12-01): 2 Reviewed: TMS Tech Note Reviewed Verification: I have reviewed the TMS Partner Alliance Manager Note and agree with the contents. The patient remains a candidate to continue TMS treatment per protocol. Assessment and Plan (1) Major depressive disorder, recurrent severe without psychotic features: Status: Acute Plan continue plan of care much improved
--- NOTE | 2024-06-21 00:46 | P.PNPS_ITS ---
TMS Daily Progress Note Daily TMS Progress Note Date of Service: 06/21/24 Week #: 8 Treatment #(12-04): 36 PHQ-9 Pre-Treatment (12-01): 8 PHQ-9 Most Recent (12-01): 2 Reviewed: TMS Tech Note Reviewed Verification: I have reviewed the TMS Rest Room Attendant Note and agree with the contents. The patient remains a candidate to continue TMS treatment per protocol. Assessment and Plan (1) Major depressive disorder, recurrent severe without psychotic features: Status: Acute Plan last tx improvement noted no side effects
== END 2024-06-13 14:00 | disposition home or self-care (01) ==
LOC: HO.PTMS 09:30
PROVIDERS: Visit Provider Clinical Nurse Specialist Psychiatric/Mental Health
DX: F33.2 Major depressive disorder, recurrent severe without psychotic features (principal); F41.1 Generalized anxiety disorder; Z79.899 Other long term (current) drug therapy
CPT/HCPCS: 90867; 90868